=== PATIENT | female | born 1980 | race Caucasian/White ===

== ENCOUNTER 2017-09-13 08:42 | Day surgery (SDC) | payer BC ==
[~2017-09-13] VITALS: Ht 165.1 cm; Wt 115.7 kg
[~2017-09-13 08:42] MED LIST: ADVAIR 250/501 DISK IH; ADVIL200 MG PO; PROAIR RESPICL90 MCG IH; SPRINTEC1 EACH PO; ULTRAM50 MG PO
[2017-09-13 09:29] VITALS: BP 134/66
[2017-09-13 11:45] VITALS: BP 167/94
[2017-09-13 12:46] VITALS: BP 151/94
== END 2017-09-13 12:51 | disposition home or self-care (01) ==
LOC: SDC 08:42
PROC: 0UBC7ZX Excision of Cervix, Via Natural or Artificial Opening, Diagnostic (ICD-10-PCS; principal; 2017-09-13)
DX: N87.0 Mild cervical dysplasia (principal); J45.909 Unspecified asthma, uncomplicated; Z80.3 Family history of malignant neoplasm of breast; Z88.0 Allergy status to penicillin
CPT/HCPCS: 88307; 88342 TC; J1100; J1170; J1885; J2250; J2405; J3010; Q0175

== ENCOUNTER → 2018-04-21 | Outpatient (CLI) | payer BC | END | disposition home or self-care (01) | LOC: CDC 08:58 | DX: R06.02 Shortness of breath (principal) | CPT/HCPCS: 93000 ==

== ENCOUNTER 2018-06-14 07:17 | Day surgery (SDC) | payer BC ==
[~2018-06-14] VITALS: Ht 165.1 cm; Wt 121.1 kg
[~2018-06-14 07:17] MED LIST changes: +PRILOSEC20 MG PO; +THRIVITE RX TA1 EACH PO; +VITAMIN D35000 UNIT PO
[2018-06-14] MEDS ORDERED: HYDROCODON-ACE1 EA11 PO (10:54)
[2018-06-14] MEDS ORDERED: OXYCODONE HCL5 MG PO (10:54)
[2018-06-14 12:25] VITALS: BP 136/77
[2018-06-14 13:25] VITALS: BP 136/89
[2018-06-14 15:30] VITALS: BP 158/85
[2018-06-14 17:13] VITALS: BP 130/79
== END 2018-06-14 17:20 | disposition home or self-care (01) ==
LOC: SDC 07:17
PROC: 0FT44ZZ Resection of Gallbladder, Percutaneous Endoscopic Approach (ICD-10-PCS; principal; 2018-06-14)
DX: K80.10 Calculus of gallbladder with chronic cholecystitis without obstruction (principal); R59.0 Localized enlarged lymph nodes; E66.01 Morbid (severe) obesity due to excess calories; Z68.41 Body mass index [BMI] 40.0-44.9, adult; K76.0 Fatty (change of) liver, not elsewhere classified; J45.909 Unspecified asthma, uncomplicated; K21.9 Gastro-esophageal reflux disease without esophagitis
CPT/HCPCS: 88304; J0131; J0330; J1100; J1170; J1644; J1885; J2250; J2405; J2710; J2765; J3010; J7643; Q0175; S0020; S0074